=== PATIENT | male | born 2000 | race Caucasian/White ===

== ENCOUNTER 2025-06-22 19:06 | Emergency (ER) | payer SELFPAY ==
[2025-06-22 19:18] VITALS: BP 157/88; PULSE 84; RESP 18; TEMP 36.7; O2SAT 97; BMI 46.2
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
== END 2025-06-22 21:47 | disposition home or self-care (01) ==
PROVIDERS: Emergency Provider Physician Assistant
DX: S80.12XA Contusion of left lower leg, initial encounter (principal); V87.7XXA Person injured in collision between other specified motor vehicles (traffic), initial encounter
CPT/HCPCS: 72170; 73552; 73562; 99284